=== PATIENT | male | born 1935 | race Caucasian/White ===

== ENCOUNTER → 2016-09-10 | Day surgery (SDC) | payer MEDICARE, BC ==
[~2016-09-10] MED LIST: ALBUTEROL17 GM INH; ALLEGRA ALLERG180 MG PO; ALLEGRA PO; ALLERGY SHOTS; ASPIRIN EC81 M1 PO; ASTELIN137 MCG INH; BACTRIM DS TABL1 TA1 PO; BUTRANS1 EAC3 TD; CARDURA2 MG PO; CHLORTHALIDONE50 M1 PO; FEXOFENADINE HC30 MG PO; FLOVENT DI50 MCG/DIS IH; HYDROCODON-ACE1 EAC1 PO; HYDROCODON-ACE1 EAC5 PO; HYDROCODON-ACE1 EACH PO; IMDUR-ER60 M1 PO; IMDUR30 MG PO; ISOSORBIDE DINI30 MG PO; KLOR-CON PO; LIPITOR40 MG PO; LOPRESSOR PO; MECLIZINE HCL12.5 M2 PO; MEDROL DOSEPAK4 MG DOB; METOPROLOL SUCC25 MG PO; MICRO-K PO; MORPHINE SULFAT15 MG PO; MS CONTIN15 MG PO; MSIR15 M1 PO; NEURONTIN300 MG PO; OXAPROZIN600 MG PO; PRAVACHOL20 MG PO; PRAVASTATIN SOD20 MG PO; PROSCAR5 MG PO; UROXATRAL10 MG PO; VICODIN ES 7.51 EACH PO; WESTCORT15 G1 TP
--- NOTE | ~2016-09-10 | OR ---
Unit #: [id number] #: [id number] Patient: KAYLEEN MELO [id number] [address] [place], [place] [address] [id number] O MR#: [id number] NAME: KAYLEEN MELO. ROOM: Date of Procedure: 09/10/2016 Admission Date: 09/10/2016 Surgeon: Albert Wood M.D. : 1935 Attending Physician: Albert Wood M.D. Primary Care Physician: Dani Guerrero M.D. OPERATIVE REPORT PREOPERATIVE DIAGNOSES Back pain, radiculopathy, degenerative disk disease, spinal stenosis. POSTOPERATIVE DIAGNOSES Back pain, radiculopathy, degenerative disk disease, spinal stenosis. PROCEDURE PERFORMED Lumbar epidural steroid injection with intravenous sedation and fluoroscopic guidance for needle localization. INDICATIONS FOR PROCEDURE The patient is an 81-year-old male with worsening back and right greater than left lower extremity pain. Symptoms consistent with spinal stenosis. Workup was demonstrated multilevel degenerative changes and spinal stenosis. He is not a surgical candidate. Based on history, pathology, and symptomatology, plan is for trial of epidural steroids. Risks and benefits were all have been reviewed. DESCRIPTION OF PROCEDURE The patient was placed in a seated position. Standard monitors were applied. 2 mg of Versed were given for sedation and anxiolysis, which were adequate. Vital signs remained stable. Sterile prep and drape then of the lumbar area was performed. The skin then at the L4-L5 level was localized with 1% lidocaine. An 18-gauge [employer] needle was then advanced via loss of resistance technique and fluoroscopic guidance in toward the epidural space. After confirming proper positioning with fluoroscopy and radiographic contrast, 80 mg of Depo-Medrol and 6 mL of 0.125% bupivacaine were deposited. The patient tolerated the procedure otherwise well and was discharged to recovery room in stable condition. Dictated by... Albert Wood M.D. LHP/rahatl TD: 09/10/2016 22:37 JOB #: [id number] Unit #: [id number] #: [id number] Patient: KAYLEEN MELO OPERATIVE REPORT Page 1 of 1 X Albert Wood MD X PROCEDURE OPERATIVE NOTE
== END | disposition home or self-care (01) ==
LOC: CCSC 07:03
DX: M51.16 Intervertebral disc disorders with radiculopathy, lumbar region (principal); M48.06 Spinal stenosis, lumbar region; M19.90 Unspecified osteoarthritis, unspecified site; N40.0 Benign prostatic hyperplasia without lower urinary tract symptoms; Z98.1 Arthrodesis status
CPT/HCPCS: J1040; J2250

== ENCOUNTER → 2016-10-01 | Day surgery (SDC) | payer MEDICARE, BC ==
--- NOTE | ~2016-10-01 | OR ---
Unit #: [id number] #: [id number] Patient: KAYLEEN MELO [id number] [address] [place], [place] [address] [id number] O MR#: [id number] NAME: KAYLEEN MELO ROOM: Date of Procedure: 10/01/2016 Admission Date: 10/01/2016 Surgeon: Albert Wood M.D. : 1935 Attending Physician: Albert Wood M.D. Referring Physician: Albert Wood M.D. Primary Care Physician: Dani Guerrero M.D. OPERATIVE REPORT PREOPERATIVE DIAGNOSES Back pain, radiculopathy, degenerative lumbar disk disease, lumbar spinal stenosis, back pain, radiculopathy. POSTOPERATIVE DIAGNOSES Back pain, radiculopathy, degenerative lumbar disk disease, lumbar spinal stenosis, back pain, radiculopathy. PROCEDURE PERFORMED Lumbar epidural steroid injection with intravenous sedation and fluoroscopic guidance for needle localization. INDICATIONS FOR PROCEDURE The patient is an 81-year-old male, who had worsening back and right greater than left lower extremity pain due to previously mentioned diagnosis. He is not a surgical candidate. Medications not sufficient. Plan is trial of epidural steroids. Initial injection about 3 weeks ago resulted in some improvement in his back greater than his lower extremities. This has not been sufficiently maintained, so plan is to repeat a second injection at this point. DESCRIPTION OF PROCEDURE The patient was placed in a seated position. Standard monitors were applied. 2 mg of Versed were given for sedation and anxiolysis, which were adequate. Vital signs remained stable. Sterile prep and drape then of the lumbar area was performed. The skin then at the L3-L4 level was localized with 1% lidocaine. An 18-gauge [employer] needle was then advanced via loss of resistance technique and fluoroscopic guidance in toward the epidural space. After confirming proper positioning with fluoroscopy and radiographic contrast, 80 mg of Depo-Medrol and 4 mL of 0.125% bupivacaine were deposited. The patient tolerated the procedure otherwise well and was discharged to the recovery room in stable condition. Dictated by... Dwayne WootenP/queenie TD: 10/01/2016 16:05 Unit #: [id number] #: [id number] Patient: KAYLEEN MELO JOB #: [id number] OPERATIVE REPORT Page 1 of 1 X Albert Wood MD X PROCEDURE OPERATIVE NOTE
== END | disposition home or self-care (01) ==
LOC: CCSC 07:26
DX: M51.16 Intervertebral disc disorders with radiculopathy, lumbar region (principal); M48.06 Spinal stenosis, lumbar region; N40.0 Benign prostatic hyperplasia without lower urinary tract symptoms; M19.90 Unspecified osteoarthritis, unspecified site; E66.01 Morbid (severe) obesity due to excess calories; Z79.82 Long term (current) use of aspirin; Z79.899 Other long term (current) drug therapy; Z87.442 Personal history of urinary calculi
CPT/HCPCS: J1040; J2250

== ENCOUNTER → 2016-10-15 | Day surgery (SDC) | payer MEDICARE, BC ==
--- NOTE | ~2016-10-15 | OR ---
Unit #: [id number] #: [id number] Patient: KAYLEEN MELO [id number] [address] [address] [id number] O MR#: [id number] NAME: KAYLEEN MELO ROOM: Date of Procedure: 10/15/2016 Admission Date: 10/15/2016 Surgeon: Albert Wood M.D. : 1935 Attending Physician: Albert Wood M.D. Primary Care Physician: Dani Guerrero M.D. OPERATIVE REPORT PREOPERATIVE DIAGNOSES Back pain, radiculopathy, degenerative lumbar disk disease, lumbar spinal stenosis. POSTOPERATIVE DIAGNOSES Back pain, radiculopathy, degenerative lumbar disk disease, lumbar spinal stenosis. PROCEDURE PERFORMED Lumbar epidural steroid injection with intravenous sedation and fluoroscopic guidance for needle localization. INDICATIONS FOR PROCEDURE The patient is an 81-year-old male with worsening back and bilateral lower extremity pain right greater than left mentioned diagnosis, he is not a surgical candidate. He has fairly significant degenerative changes. He is managed medically and decision was made to give a trial of epidural steroids. Two were done to this point. They have given definite initial improvement. Last injection was done 2 weeks ago and did well initially, then had some return of right greater than left leg pain and hip pain, today is actually a better day than usual. Based on his history, pathology, symptomatology, and options, we are going to proceed with a final injection today. DESCRIPTION OF PROCEDURE The patient was placed in a seated position. Standard monitors were applied. 2 mg of Versed were given for sedation and anxiolysis, which were adequate. Vital signs remained stable. Sterile prep and drape then of lumbar area was performed. The skin then at the L4 level was localized with 1% lidocaine. An 18-gauge [employer] needle was then advanced via loss of resistance technique and fluoroscopic guidance in toward the epidural space. After confirming proper positioning with fluoroscopy and radiographic contrast, 80 mg of Depo-Medrol and 6 mL of 0.125% bupivacaine were deposited. The patient tolerated the procedure otherwise well and was discharged to the recovery room in stable condition. Dictated by... Albert Wood M.D. P/modl Unit #: [id number] #: [id number] Patient: KAYLEEN MELO TD: 10/15/2016 11:16 JOB #: [id number] OPERATIVE REPORT Page 1 of 1 X Albert Wood MD X PROCEDURE OPERATIVE NOTE
== END | disposition home or self-care (01) ==
LOC: CCSC 07:27
DX: M51.16 Intervertebral disc disorders with radiculopathy, lumbar region (principal); M48.06 Spinal stenosis, lumbar region; N40.0 Benign prostatic hyperplasia without lower urinary tract symptoms; E66.01 Morbid (severe) obesity due to excess calories; Z87.442 Personal history of urinary calculi; Z79.82 Long term (current) use of aspirin; Z79.891 Long term (current) use of opiate analgesic; Z79.899 Other long term (current) drug therapy
CPT/HCPCS: J1040; J2250